=== PATIENT | female | born 1985 | race Caucasian/White ===

== ENCOUNTER → 2017-02-15 | Outpatient (CLI) | payer BC ==
[2017-02-15 17:40] LABS: FREE T4 1.23 ng/dl (0.76-1.46)
[2017-02-15 17:45] LABS: THYROID STIM HORMONE (HS) 0.446 uIU/ml (0.358-4.75)
[2017-02-15 17:57] LABS: BASO % 0.3 % (0.0-1.0); EOS # 0.3 10*3/uL (0.0-0.4); EOS % 3.2 % (1.0-4.0); HEMATOCRIT 37.3 % (37.0-47.0); HEMOGLOBIN 12.6 g/dl (12.0-16.0); LYMPH # 1.4 10*3/uL (1.3-4.4); LYMPH % 16.2 % (27.0-41.0); MEAN CELL VOLUME 85.2 fl (81.0-99.0); MEAN CORPUSCULAR HGB 28.8 pg (27.0-31.0); MEAN CORPUSCULAR HGB CONC 33.8 g/dl (33.0-37.0); MEAN PLATELET VOLUME 9.5 fl (9.6-12.3); MONO # 0.5 10*3/uL (0.1-1.0); MONO % 5.9 % (3.0-9.0); NEUT # 6.6 10*3/uL (2.3-7.9); NEUT % 74.1 % (47.0-73.0); PLATELET COUNT AUTOMATED 375 10*3/uL (130-400); RED BLOOD COUNT 4.38 10*6/uL (4.10-5.10); RED CELL DISTRI WIDTH 12.4 % (0-14.5); WHITE BLOOD COUNT 8.9 10*3/uL (4.8-10.8)
[2017-02-16 08:12] LABS: HEPATITIS B SURFACE AB 006395 Reactive (.)
== END | disposition home or self-care (01) ==
LOC: LAB 16:44 → US 17:00
PROVIDERS: Obstetrics & Gynecology
DX: O99.280 Endocrine, nutritional and metabolic diseases complicating pregnancy, unspecified trimester (principal); Z3A.00 Weeks of gestation of pregnancy not specified

== ENCOUNTER → 2017-03-29 | Outpatient (CLI) | payer OTHER | END | disposition home or self-care (01) | LOC: US 03-14 17:00 | DX: O09.212 Supervision of pregnancy with history of pre-term labor, second trimester (principal); Z3A.16 16 weeks gestation of pregnancy ==

== ENCOUNTER → 2017-04-14 | Outpatient (CLI) | payer OTHER ==
[2017-04-14 18:14] LABS: BILIRUBIN NEGATIVE (NEGATIVE); BLOOD 2+ (NEGATIVE); CLARITY CLOUDY (CLEAR); COLOR YELLOW (YELLOW); GLUCOSE NEGATIVE (NEGATIVE); KETONE NEGATIVE (NEGATIVE); LEUKO ESTERASE 3+ (NEGATIVE); NITRITE NEGATIVE (NEGATIVE); PROTEIN NEGATIVE (NEGATIVE); SPECIFIC GRAVITY <= 1.005 (1.005-1.030); UROBILINOGEN 0.2 E.U./dl (0.2-1.0)
[2017-04-14 18:21] LABS: BACTERIA 4+; EPITHELIAL CELLS 15-20; URINE AMPHETAMINES < 1000 (1000ng/ml); URINE BARBITURATES < 200 (200ng/ml); URINE COCAINE < 300 (300ng/ml); WBC TNTC wbc/hpf (0-5)
== END | disposition home or self-care (01) ==
LOC: US 16:59 → LAB 16:59 → US 17:00
PROVIDERS: Obstetrics & Gynecology
DX: Z34.90 Encounter for supervision of normal pregnancy, unspecified, unspecified trimester (principal); R82.99 Other abnormal findings in urine

== ENCOUNTER → 2017-04-25 | Outpatient (CLI) | payer OTHER | LOC: US 17:54 | DX: Z34.92 Encounter for supervision of normal pregnancy, unspecified, second trimester (principal) ==

== ENCOUNTER → 2017-06-07 | Outpatient (CLI) | payer OTHER | END | disposition home or self-care (01) | LOC: US 16:51 | DX: Z73.6 Limitation of activities due to disability (principal) ==

== ENCOUNTER → 2017-06-16 | Outpatient (CLI) | payer OTHER ==
[2017-06-16 16:42] LABS: FREE T4 1.01 ng/dl (0.76-1.46)
[2017-06-16 16:47] LABS: THYROID STIM HORMONE (HS) 0.388 uIU/ml (0.358-4.75)
== END | disposition home or self-care (01) ==
LOC: LAB 15:43
PROVIDERS: Obstetrics & Gynecology
DX: E07.9 Disorder of thyroid, unspecified (principal)

== ENCOUNTER → 2017-06-30 | Outpatient (CLI) | payer OTHER | LOC: LAB 07:51 | DX: R00.0 Tachycardia, unspecified (principal) ==

== ENCOUNTER 2018-10-03 14:33 | Emergency (ER) | payer OTHER ==
[~2018-10-03] VITALS: Ht 162.5 cm; Wt 63.5 kg
[2018-10-03] MEDS ORDERED: Synthroid,Lev150 MCG PO (14:35)
[2018-10-03] MEDS ORDERED: PERCOCET 5-3251 EACH PO (17:12)
[2018-10-03] MEDS ORDERED: PREDNISONE10 MG PO (17:12)
[2018-10-03] MEDS ORDERED: CYCLOBENZAPRINE5 M3 PO (17:13)
== END 2018-10-03 17:26 | disposition home or self-care (01) ==
LOC: ED 14:33
DX: S39.012A Strain of muscle, fascia and tendon of lower back, initial encounter (principal); Z88.6 Allergy status to analgesic agent; Z79.899 Other long term (current) drug therapy; X58.XXXA Exposure to other specified factors, initial encounter; Y93.89 Activity, other specified; Y92.89 Other specified places as the place of occurrence of the external cause; Y99.8 Other external cause status

== ENCOUNTER → 2020-06-27 | Outpatient (CLI) | payer OTHER ==
[~2020-06-27] MED LIST: CYCLOBENZAPRINE5 M3 PO; PERCOCET 5-3251 EACH PO; PREDNISONE10 MG PO; Synthroid,Lev150 MCG PO
[2020-06-27 17:29] LABS: BASO % 0.7 % (0.0-1.0); EOS # 0.3 10*3/uL (0.0-0.4); EOS % 5.1 % (1.0-4.0); HEMATOCRIT 38.6 % (37.0-47.0); LYMPH # 1.6 10*3/uL (1.3-4.4); LYMPH % 26.9 % (27.0-41.0); MEAN CELL VOLUME 82.3 fl (81.0-99.0); MEAN CORPUSCULAR HGB 25.8 pg (27.0-31.0); MEAN CORPUSCULAR HGB CONC 31.3 g/dl (33.0-37.0); MEAN PLATELET VOLUME 9.5 fl (9.6-12.3); MONO # 0.5 10*3/uL (0.1-1.0); MONO % 8.5 % (3.0-9.0); NEUT # 3.6 10*3/uL (2.3-7.9); NEUT % 58.6 % (47.0-73.0); PLATELET COUNT AUTOMATED 382 10*3/uL (130-400); RED BLOOD COUNT 4.69 10*6/uL (4.10-5.10); RED CELL DISTRI WIDTH 13.3 % (0-14.5); WHITE BLOOD COUNT 6.1 10*3/uL (4.8-10.8)
[2020-06-27 18:00] LABS: ALBUMIN 3.8 gm/dl (3.1-4.5); ALKALINE PHOSPHATASE 50 U/L (45-117); BUN 11 mg/dl (7-24); CHLORIDE 107 mmol/L (98-107); CHOLESTEROL 133 mg/dL (<200); CREATININE 0.63 mg/dL (0.55-1.02); FREE T4 1.27 ng/dl (0.76-1.46); HDL CHOLESTEROL 44 mg/dl (40-60); LDL CHOLESTEROL 51 mg/dL (9-159); POTASSIUM 3.9 mmol/L (3.5-5.1); SGOT/AST 13 IU/L (3-35); SGPT/ALT 17 U/L (12-78); SODIUM 139 mmol/L (136-145); TOTAL PROTEIN 7.9 gm/dL (6.4-8.2); TRIGLYCERIDES 191 mg/dl (<150); VLDL CHOLESTEROL 38 mg/dL (6-40)
[2020-06-27 18:05] LABS: THYROID STIM HORMONE (HS) 0.135 uIU/ml (0.358-4.75)
[2020-06-27 18:22] LABS: VITAMIN D, 25-HYDROXY 26.6 ng/mL (30-100)
== END | disposition home or self-care (01) ==
LOC: LAB 16:50
PROVIDERS: ATTEND Internal Medicine
DX: Z00.01 Encounter for general adult medical examination with abnormal findings (principal); E55.9 Vitamin D deficiency, unspecified; R53.81 Other malaise; E03.9 Hypothyroidism, unspecified

== ENCOUNTER → 2020-09-12 | Outpatient (CLI) | payer OTHER ==
[2020-09-12 15:34] LABS: FREE T4 0.83 ng/dl (0.76-1.46); THYROXINE (T4) TOTAL 9.5 ug/dl (4.8-13.9)
[2020-09-12 16:01] LABS: THYROID STIM HORMONE (HS) 13.4 uIU/ml (0.358-4.75)
== END | disposition home or self-care (01) ==
LOC: LAB 14:39
PROVIDERS: ATTEND Internal Medicine
DX: E03.9 Hypothyroidism, unspecified (principal); R94.6 Abnormal results of thyroid function studies; S23.1 Subluxation and dislocation of thoracic vertebra; X58.XXXS Exposure to other specified factors, sequela

== ENCOUNTER 2021-06-07 17:43 | Emergency (ER) | payer OTHER ==
[~2021-06-07] VITALS: Wt 68.0 kg
== END 2021-06-07 20:45 | disposition home or self-care (01) ==
LOC: ED 17:43
DX: B34.9 Viral infection, unspecified (principal); Z20.822 Contact with and (suspected) exposure to COVID-19; Z88.6 Allergy status to analgesic agent; Z79.899 Other long term (current) drug therapy